=== PATIENT | female | born 1990 | race Caucasian/White ===

== ENCOUNTER 2018-02-17 00:08 | Inpatient (IN) | payer BC ==
[~2018-02-17] VITALS: Ht 160 cm; Wt 66.7 kg
[2018-02-17] MEDS ORDERED: IV NS 1000 ML 1,000 ML IV ONE ×2 (00:45→04:00)
[2018-02-17] MEDS ORDERED: PANTOPRAZOLE SODIUM 40 MG VIAL IV ONE (00:45)
[2018-02-17] MEDS ORDERED: ONDANSETRON IV *ER 4 MG/2 ML VIAL IV ONE (00:45)
[2018-02-17] MEDS ORDERED: ONDANSETRON 4 MG/2 ML VIAL ONE (02:17)
[2018-02-17] MEDS ORDERED: PANTOPRAZOLE SODIUM 40 MG VIAL ONE (02:17)
[2018-02-17 02:35] LABS: *BLOOD, URINE NEGATIVE (NEGATIVE); *CLARITY,URINE CLEAR (CLEAR); *COLOR,URINE YELLOW (YELLOW); *KETONES,URINE 4+ (NEGATIVE); *PROTEIN,URINE 2+ (NEGATIVE); *UROBILINOGEN,URINE 0.2 E.U./dl (NORMAL); LEUKOCYTE ESTERASE ,URINE NEGATIVE (NEGATIVE); NITRITE, URINE NEGATIVE (NEGATIVE); UGLUCOSE NEGATIVE (NEGATIVE)
[2018-02-17 02:37] LABS: *BILIRUBIN,URIN 1+ (NEGATIVE)
[2018-02-17 02:43] LABS: BACTERIA,URINE NONE SEEN /HPF (NONE SEEN); MUCUS,URINE MODERATE /LPF (0-FEW); RBC,URINE 0-3 /HPF (0-3); SQUAMOUS EPITHELIAL CELL,UR FEW /HPF (NONE SEEN); URINE AMORPHOUS PHOSPHATES FEW /HPF; WBC,URINE 0-3 /HPF (0-3)
[2018-02-17 02:48] LABS: *AMPHETAMINE, URINE NEGATIVE (NEGATIVE); *BARBITURATE, URINE POSITIVE (NEGATIVE); *CANNABINOID, URINE NEGATIVE (NEGATIVE); *COCCAINE, URINE NEGATIVE (NEGATIVE); *OPIATE, URINE POSITIVE (NEGATIVE); *PHENCYCLIDINE SCREEN,URINE NEGATIVE (NEGATIVE)
[2018-02-17 03:03] LABS: BASOPHILS # (AUTO) 0.1 K/uL (0.0-8.0); EOSINOPHILS % (AUTO) 0.1 % (0.0-7.0); HEMATOCRIT 33.7 % (31.2-41.9); HEMOGLOBIN 11.8 g/dL (10.9-14.3); LYMPHOCYTES # (AUTO) 1.1 K/uL (20.0-40.0); MEAN CORPUSCULAR HEMOGLOBIN 30.8 uug (24.7-32.8); MEAN CORPUSCULAR HGB CONC 35 g/dL (32.3-35.6); MEAN CORPUSCULAR VOLUME 87.7 fL (75.5-95.3); MONOCYTES # (AUTO) 0.2 K/uL (2.0-10.0); MONOCYTES % (AUTO) 3.2 % (0.0-11.0); NEUTROPHILS # (AUTO) 4.9 K/uL (1.8-8.9); NEUTROPHILS % (AUTO) 78.7 % (38.5-71.5); PLATELET COUNT (AUTO) 381 K/uL (179-408); RED BLOOD CELL COUNT(AUTO) 3.84 MIL/uL (3.63-4.92); WHITE BLOOD COUNT (AUTO) 6.3 K/uL (3.8-11.8)
--- NOTE | 2018-02-17 03:10 | NUR ---
PT BEGAN EXPERIENCING HYPERVENTILATION, DIAPHORESIS AND RESTLESSNESS. PT DENIES CHEST PAIN AND DIFFICULTY BREATHING. MD MADE AWARE.
[2018-02-17] MEDS ORDERED: LORAZEPAM 2 MG/1 ML VIAL IV ONE ×3 (03:15→03:17)
[2018-02-17] MEDS ORDERED: diphenhydrAMINE 50 MG/1 ML VIAL IV ONE (03:17)
[2018-02-17 03:23] LABS: ETHANOL < 3 MG/DL (0-0)
[2018-02-17 03:36] LABS: CARBON DIOXIDE 25 mmol/L (21-32); CHLORIDE 97 mmol/L (98-107); CREATININE 0.7 mg/dL (0.6-1.3); GLUCOSE 216 mg/dL (74-106); POTASSIUM 3.3 mmol/L (3.5-5.1); UREA NITROGEN, BLOOD 26 mg/dL (7-18)
[2018-02-17 03:42] LABS: ALANINE AMINOTRANSFERASE 19 U/L (14-59); ALKALINE PHOSPHATASE 107 U/L (50-136); ASPARTATE AMINOTRANSFERASE 19 U/L (15-37); BILIRUBIN,TOTAL 0.4 mg/dL (0.2-1.0); CREATINE KINASE, TOTAL 321 U/L (26-192); LIPASE 66 U/L (73-393); TOTAL PROTEIN, SERUM 8.2 g/dL (6.4-8.2)
--- NOTE | 2018-02-17 03:56 | NUR ---
Call placed to [facility], Dr. Mcelroy speaking with PUSHPA.
--- NOTE | 2018-02-17 04:20 | NUR ---
REPORT GIVEN TO CCU NURSEAMARA
--- NOTE | 2018-02-17 05:00 | NUR ---
Pt. admitted to CCU, under care of Dr. ADDISON Belongs List completed
[2018-02-17 05:30] VITALS: BP 106/71
--- NOTE | 2018-02-17 05:30 | NUR ---
RECEIVED PT FROM ER VIA BORIS, APHASIC, OPEN HER EYES TO VERBAL, NOT FOLLOWING TO COMMAND. ON O2 @ 2LNC W/ O2 SAT OF 100%. IVF FROM ER OF NS @ 250CC/HR.TILL FINISH. PLACED ON BEDSIDE MONITORING.
--- NOTE | 2018-02-17 05:59 | NUR ---
CALLED DR ADDISON FOR ORDERS.
[2018-02-17] MEDS ORDERED: ONDANSETRON 4 MG/2 ML VIAL IV PRN (07:00)
[2018-02-17] MEDS ORDERED: MAGNESIUM HYDROXIDE 30 ML LIQUID UDC PO PRN (07:00)
[2018-02-17] MEDS ORDERED: LORAZEPAM 2 MG/1 ML VIAL IV PRN (07:00)
[2018-02-17] MEDS ORDERED: DEXTROSE 50% 50 ML DISP.SYRIN IV PRN (07:00)
[2018-02-17] MEDS ORDERED: INSULIN REGULAR, HUMAN 300 UNITS/3 ML VIAL SQ PRN (07:00)
[2018-02-17] MEDS ORDERED: IV NS 1000 ML 1,000 ML IV PRN (07:00)
[2018-02-17] MEDS ORDERED: ACETAMINOPHEN 325 MG TABLET PO PRN (07:00)
[2018-02-17 07:52] LABS: BASOPHILS % (AUTO) 0.6 % (0.0-2.0); EOSINOPHILS % (AUTO) 0.1 % (0.0-7.0); HEMATOCRIT 30.5 % (31.2-41.9); HEMOGLOBIN 10.8 g/dL (10.9-14.3); LYMPHOCYTES # (AUTO) 1.3 K/uL (20.0-40.0); LYMPHOCYTES % (AUTO) 15.3 % (20.5-51.5); MEAN CORPUSCULAR HEMOGLOBIN 30.9 uug (24.7-32.8); MEAN CORPUSCULAR HGB CONC 35 g/dL (32.3-35.6); MEAN CORPUSCULAR VOLUME 87.6 fL (75.5-95.3); MONOCYTES # (AUTO) 0.3 K/uL (2.0-10.0); MONOCYTES % (AUTO) 4.1 % (0.0-11.0); NEUTROPHILS # (AUTO) 6.6 K/uL (1.8-8.9); NEUTROPHILS % (AUTO) 79.9 % (38.5-71.5); PLATELET COUNT (AUTO) 350 K/uL (179-408); RED BLOOD CELL COUNT(AUTO) 3.49 MIL/uL (3.63-4.92); WHITE BLOOD COUNT (AUTO) 8.2 K/uL (3.8-11.8)
[2018-02-17] MEDS: BLOOD SUGAR DIAGNOSTIC 1 EACH STRIP VI SCH ×4 (07:52→20:31)
[2018-02-17] MEDS: PANTOPRAZOLE SODIUM 40 MG TABLET.DR PO SCH (07:53)
[2018-02-17] MEDS: DOCUSATE SODIUM 100 MG CAPSULE PO SCH ×2 (07:55→20:18)
[2018-02-17 08:00] VITALS: BP 117/63
[2018-02-17] MEDS: INSULIN GLARGINE,HUM 300 UNITS/3 ML CARTRIDGE SQ SCH (08:12)
[2018-02-17] MEDS: POTASSIUM CHLORIDE 20 MEQ in IV NS 1000 ML 1,000 ML IV PRN ×2 (08:14→22:31)
[2018-02-17] MEDS: INSULIN REGULAR, HUMAN 300 UNIT/3 ML VIAL SQ PRN ×3 (08:14→16:48)
[2018-02-17 08:19] LABS: BILIRUBIN,TOTAL 0.4 mg/dL (0.2-1.0); CREATININE 0.8 mg/dL (0.6-1.3); MAGNESIUM 1.6 mg/dL (1.8-2.4); PHOSPHOROUS 3.9 mg/dL (2.5-4.9); POTASSIUM 3.5 mmol/L (3.5-5.1); TOTAL PROTEIN, SERUM 7.2 g/dL (6.4-8.2)
--- NOTE | 2018-02-17 10:15 | NUR ---
TRANSFERRED FROM CCU VIA BED A 27 YO FEMALE WITH DEX OF DRUG INTOXICATION AWAKE ALERT BUT VERY ANXIOUS IN ROCKING MOTION WITH 02 3L NC SATURATING 96%. NO SOB WARM AND DRY SKIN ST ON MONITOR
[2018-02-17 11:38] VITALS: BP 117/82
[2018-02-17] MEDS: LORAZEPAM 2 MG/1 ML VIAL IV PRN ×3 (11:54→20:31)
--- NOTE | 2018-02-17 11:59 | NUR ---
SHAKY AND ANXIOUS BP114/59. ATIVAN GIVEN. CONTINUE HATTIE MONITORING ST ON MONITOR
[2018-02-17] MEDS ORDERED: POTASSIUM CHLORIDE 20 MEQ TAB.PRT.SR PO ONE (12:00)
[2018-02-17] MEDS: MAGNESIUM SULFATE/D5W 100 ML IV SCH ×2 (12:14→13:09)
[2018-02-17 15:23] VITALS: BP 117/77
--- NOTE | 2018-02-17 15:24 | NUR ---
PATIENT WITH ON AND OFF RESTLESSNESS HOSPITALIST AWARE CONTINUE WITH CURRENT TX PLAN AND HATTIE MONITORING
[2018-02-17] MEDS ORDERED: GABA800T2 PO (15:48)
[2018-02-17] MEDS ORDERED: ESCI10TA PO (15:48)
[2018-02-17] MEDS ORDERED: METH-406 PO (15:48)
[2018-02-17] MEDS ORDERED: TOPI50TA PO (15:48)
[2018-02-17] MEDS ORDERED: BUPR300T52 PO (15:48)
[2018-02-17] MEDS ORDERED: QUET400T PO (15:48)
--- NOTE | 2018-02-17 18:17 | NUR ---
CONTINUE WITHDRAWAL MONITORING, IV ATIVAN PRN AND IVF FOR HYDRATION
[2018-02-17 20:28] VITALS: BP 112/74
--- NOTE | 2018-02-17 20:30 | NUR ---
PATIENT REMAINS VERY ANXIOUS ,SHAKING,JERKING, PACING ,REQUESTED TO TAKE WARM BATH ALL THE TIMES, ALLOW PATIENT TO TAKE WARM BATH AND ABLE TO REST QUIETLY FOR AWHILE AND RESTARTED OVER AND OVER AGAIN.ATIVAN 2MG IV ADMIN , WAS NOTIFIED.
[2018-02-18 00:32] VITALS: BP 112/85
[2018-02-18] MEDS: LORAZEPAM 2 MG/1 ML VIAL IV PRN ×3 (01:02→13:50)
[2018-02-18] MEDS: diphenhydrAMINE 50 MG/1 ML VIAL IV PRN ×3 (01:02→10:26)
[2018-02-18] MEDS ORDERED: diphenhydrAMINE 50 MG/1 ML VIAL IV ONE (02:00)
[2018-02-18] MEDS ORDERED: LORAZEPAM 2 MG/1 ML VIAL IV ONE (02:00)
[2018-02-18 05:14] VITALS: BP 127/86
[2018-02-18] MEDS: BLOOD SUGAR DIAGNOSTIC 1 EACH STRIP VI SCH ×2 (06:08→11:40)
[2018-02-18] MEDS: PANTOPRAZOLE SODIUM 40 MG TABLET.DR PO SCH (06:10)
--- NOTE | 2018-02-18 06:39 | NUR ---
patient continue restless,agitated most of times,. aware,continue closely monitor, iv Ativan and Benadryl admin prn.patient blood sugar this am 485, was notified.ivf on hold per patient requested,sinus tachy 106 bpm.
[2018-02-18] MEDS: INSULIN REGULAR, HUMAN 300 UNIT/3 ML VIAL SQ PRN (07:16)
--- NOTE | 2018-02-18 07:24 | NUR ---
RESTING COMFORTABLY IN BED NO SIGNS OF DISTRESS. WILL CONTINUE TO MONITOR
[2018-02-18] MEDS: DOCUSATE SODIUM 100 MG CAPSULE PO SCH (08:50)
[2018-02-18 09:38] LABS: CREATININE 1.2 mg/dL (0.6-1.3); MAGNESIUM 1.7 mg/dL (1.8-2.4); POTASSIUM 3.9 mmol/L (3.5-5.1)
[2018-02-18] MEDS: INSULIN GLARGINE,HUM 300 UNITS/3 ML CARTRIDGE SQ SCH (10:28)
[2018-02-18] MEDS ORDERED: TOPIRAMATE 25 MG TABLET PO SCH (11:15)
[2018-02-18] MEDS ORDERED: SULFAMETH/TRIMETH 800/160 MG TABLET PO SCH (11:15)
--- NOTE | 2018-02-18 11:20 | NUR ---
seen by hospitalist with dc order to [facility], case worker aware.
[2018-02-18] MEDS ORDERED: INSULIN LISPRO 1000 UNITS/10 ML VIAL(HUMALOG) SQ SCH (11:30)
[2018-02-18 11:50] VITALS: BP 127/67
[2018-02-18] MEDS ORDERED: QUET200T PO (11:52)
[2018-02-18] MEDS ORDERED: Insulin Glargine,Hum SQ (11:52)
[2018-02-18] MEDS ORDERED: INSU100V SQ (11:52)
[2018-02-18] MEDS ORDERED: DEXT50DI8 IV (11:52)
[2018-02-18] MEDS ORDERED: Blood Sugar Diagnostic VI (11:52)
[2018-02-18] MEDS ORDERED: SULF1TAB3 PO (11:52)
[2018-02-18] MEDS ORDERED: TOPI25TA PO (11:52)
[2018-02-18] MEDS ORDERED: GABA-534 PO (11:52)
[2018-02-18] MEDS ORDERED: MAGNESIUM SULFATE/D5W 100 ML IV SCH (12:45)
[2018-02-18] MEDS ORDERED: GABAPENTIN 300 MG CAPSULE PO SCH (13:00)
[2018-02-18] MEDS ORDERED: MAGNESIUM OXIDE 400 MG TABLET PO ONE (13:00)
[2018-02-18] MEDS ORDERED: GABAPENTIN 400 MG CAPSULE PO SCH (13:00)
--- NOTE | 2018-02-18 13:00 | NUR ---
patient refused both wrist for picture taking.
--- NOTE | 2018-02-18 15:20 | NUR ---
patient transferred to [facility] for further rehabilitation. [facility]
[2018-02-18] MEDS ORDERED: BENZ2AMP IJ (17:16)
[2018-02-18] MEDS ORDERED: OLAN20TA3 PO (17:17)
[2018-02-18] MEDS ORDERED: INSULIN GLARGINE,HUM 300 UNITS/3 ML CARTRIDGE SQ SCH (21:00)
[2018-02-18] MEDS ORDERED: QUETIAPINE FUMARATE 200 MG TABLET PO SCH (21:00)
[2018-02-23] MEDS ORDERED: IBUP-1955 PO (17:31)
[2018-02-23] MEDS ORDERED: TOPI25TA PO (17:31)
[2018-02-23] MEDS ORDERED: INSU100V28 SQ (17:31)
[2018-02-23] MEDS ORDERED: CLON0.1T14 PO (17:31)
[2018-02-23] MEDS ORDERED: GABA-534 PO (17:31)
[2018-02-23] MEDS ORDERED: DIPH50CA37 PO (17:31)
[2018-02-23] MEDS ORDERED: HYDR-3895 PO (17:31)
[2018-02-23] MEDS ORDERED: Insulin Glargine,Hum SQ (17:31)
== END 2018-02-18 15:45 | DRG 897 ==
LOC: ER 00:15 → CCU 04:37 → TELE-TD 10:22 → TELE 02-18 12:50
PROVIDERS: ADMIT Internal Medicine; ATTEND Nurse Practitioner Acute Care
DX: F11.23 Opioid dependence with withdrawal (principal); E10.65 Type 1 diabetes mellitus with hyperglycemia; E44.1 Mild protein-calorie malnutrition; L02.414 Cutaneous abscess of left upper limb; E86.0 Dehydration; Z68.26 Body mass index [BMI] 26.0-26.9, adult; E83.42 Hypomagnesemia; E87.6 Hypokalemia; Z91.89 Other specified personal risk factors, not elsewhere classified; S51.832S Puncture wound without foreign body of left forearm, sequela; X78.8XXS Intentional self-harm by other sharp object, sequela; Z79.4 Long term (current) use of insulin; Z91.14 Patient's other noncompliance with medication regimen; Z87.442 Personal history of urinary calculi; F17.210 Nicotine dependence, cigarettes, uncomplicated
CPT/HCPCS: 36415; 70030-TC; 80307; 83690; 83735; 84100; 84703; 85025; 85610; 93005; A4663; C9113; G0480; J1200; J1815; J2060; J2405; J3475; J3480; J7030

== ENCOUNTER 2018-02-18 15:32 | Inpatient (IN) | payer BC, OTHER ==
[~2018-02-18] VITALS: Ht 160 cm; Wt 61.2 kg
[~2018-02-18 15:32] MED LIST: BUPR300T52 PO; Blood Sugar Diagnostic VI; DEXT50DI8 IV; ESCI10TA PO; GABA-534 PO; GABA800T2 PO; INSU100V SQ; Insulin Glargine,Hum SQ; METH-406 PO; QUET200T PO; QUET400T PO; SULF1TAB3 PO; TOPI25TA PO; TOPI50TA PO
[2018-02-18] MEDS ORDERED: DEXTROSE 50% 50 ML DISP.SYRIN IV PRN (16:45)
[2018-02-18] MEDS ORDERED: MAGNESIUM HYDROXIDE 30 ML LIQUID UDC PO PRN (16:45)
[2018-02-18] MEDS ORDERED: BUPRENORPHINE HCL 2 MG TAB.SUBL SL PRN (16:45)
[2018-02-18] MEDS ORDERED: LORAZEPAM 2 MG/1 ML VIAL IM PRN (16:45)
[2018-02-18] MEDS ORDERED: MIRALAX 17 GM POWD.PACK PO PRN (16:45)
[2018-02-18] MEDS ORDERED: LOPERAMIDE HCL 2 MG CAPSULE PO PRN ×2 (16:45)
[2018-02-18] MEDS ORDERED: MAG HYDROX/AL HYDROX/SIMETH 30 ML LIQUID UDC PO PRN (16:45)
[2018-02-18] MEDS ORDERED: CLONIDINE HCL 0.1 MG TABLET PO PRN (16:45)
[2018-02-18] MEDS ORDERED: LORAZEPAM 1 MG TABLET PO PRN (16:45)
[2018-02-18] MEDS ORDERED: diphenhydrAMINE 50 MG CAPSULE PO PRN (16:45)
[2018-02-18] MEDS ORDERED: ONDANSETRON 4 MG/2 ML VIAL IM PRN (16:45)
[2018-02-18 16:55] LABS: *URINE HCG, QUAL NEGATIVE (NEGATIVE)
[2018-02-18 17:06] LABS: *AMPHETAMINE, URINE NEGATIVE (NEGATIVE); *BARBITURATE, URINE POSITIVE (NEGATIVE); *CANNABINOID, URINE NEGATIVE (NEGATIVE); *COCCAINE, URINE NEGATIVE (NEGATIVE); *OPIATE, URINE POSITIVE (NEGATIVE); *PHENCYCLIDINE SCREEN,URINE NEGATIVE (NEGATIVE)
[2018-02-18] MEDS ORDERED: BENZ2AMP IJ (17:16)
[2018-02-18] MEDS ORDERED: OLAN20TA3 PO (17:17)
[2018-02-18 17:24] LABS: BASOPHILS % (AUTO) 0.4 % (0.0-2.0); EOSINOPHILS % (AUTO) 0.1 % (0.0-7.0); HEMATOCRIT 35.3 % (31.2-41.9); HEMOGLOBIN 12.4 g/dL (10.9-14.3); LYMPHOCYTES % (AUTO) 18.2 % (20.5-51.5); MEAN CORPUSCULAR HEMOGLOBIN 30.5 uug (24.7-32.8); MEAN CORPUSCULAR HGB CONC 35 g/dL (32.3-35.6); MONOCYTES # (AUTO) 0.4 K/uL (2.0-10.0); MONOCYTES % (AUTO) 3.3 % (0.0-11.0); NEUTROPHILS # (AUTO) 8.5 K/uL (1.8-8.9); PLATELET COUNT (AUTO) 430 K/uL (179-408); RED BLOOD CELL COUNT(AUTO) 4.06 MIL/uL (3.63-4.92); WHITE BLOOD COUNT (AUTO) 10.9 K/uL (3.8-11.8)
[2018-02-18] MEDS: BUPRENORPHINE HCL 2 MG TAB.SUBL SL SCH ×2 (17:24→22:20)
[2018-02-18 17:31] LABS: ETHANOL < 3 MG/DL (0-0)
[2018-02-18 17:33] LABS: ALANINE AMINOTRANSFERASE 21 U/L (14-59); ALKALINE PHOSPHATASE 111 U/L (50-136); ASPARTATE AMINOTRANSFERASE 15 U/L (15-37); BILIRUBIN,TOTAL 0.4 mg/dL (0.2-1.0); CARBON DIOXIDE 25 mmol/L (21-32); CHLORIDE 99 mmol/L (98-107); CREATININE 0.8 mg/dL (0.6-1.3); GLUCOSE 158 mg/dL (74-106); MAGNESIUM 1.9 mg/dL (1.8-2.4); POTASSIUM 3.1 mmol/L (3.5-5.1); TOTAL PROTEIN, SERUM 8.7 g/dL (6.4-8.2); UREA NITROGEN, BLOOD 16 mg/dL (7-18)
[2018-02-18] MEDS ORDERED: BLOOD SUGAR DIAGNOSTIC 1 EACH STRIP VI ONE (17:45)
[2018-02-18] MEDS: INSULIN REGULAR, HUMAN 300 UNIT/3 ML VIAL SQ PRN (17:47)
[2018-02-18] MEDS ORDERED: POTASSIUM CHLORIDE 20 MEQ TAB.PRT.SR PO ONE (18:15)
[2018-02-18 20:15] VITALS: BP 113/74
[2018-02-18] MEDS ORDERED: LORAZEPAM 1 MG TABLET PO SCH (21:00)
[2018-02-18] MEDS: BLOOD SUGAR DIAGNOSTIC 1 EACH STRIP VI SCH (21:00)
[2018-02-18] MEDS: TOPIRAMATE 25 MG TABLET PO SCH (22:19)
[2018-02-18] MEDS: LACTOBACILLUS RHAMNOSUS GG 1 EACH CAPSULE PO SCH (22:19)
[2018-02-18] MEDS: SULFAMETH/TRIMETH 800/160 MG TABLET PO SCH (22:19)
[2018-02-18] MEDS: GABAPENTIN 300 MG CAPSULE PO SCH (22:19)
[2018-02-18] MEDS: INSULIN GLARGINE,HUM 300 UNITS/3 ML CARTRIDGE SQ SCH (22:24)
[2018-02-18] MEDS: INSULIN REGULAR, HUMAN 300 UNITS/3 ML VIAL SQ PRN (22:24)
[2018-02-19] VITALS (7 sets, daily range): BP systolic 94–131; BP diastolic 55–85
[2018-02-19] MEDS: BLOOD SUGAR DIAGNOSTIC 1 EACH STRIP VI SCH ×4 (07:39→20:14)
[2018-02-19] MEDS: GABAPENTIN 300 MG CAPSULE PO SCH ×3 (08:00→20:02)
[2018-02-19] MEDS: SULFAMETH/TRIMETH 800/160 MG TABLET PO SCH ×2 (08:01→20:06)
[2018-02-19] MEDS: BUPRENORPHINE HCL 2 MG TAB.SUBL SL SCH ×3 (08:01→20:08)
[2018-02-19] MEDS: LACTOBACILLUS RHAMNOSUS GG 1 EACH CAPSULE PO SCH ×2 (08:01→20:06)
[2018-02-19] MEDS: LORAZEPAM 1 MG TABLET PO PRN ×4 (08:01→20:04)
[2018-02-19] MEDS: TOPIRAMATE 25 MG TABLET PO SCH ×2 (08:01→20:03)
[2018-02-19] MEDS ORDERED: BLOOD SUGAR DIAGNOSTIC 1 EACH STRIP VI ONE (08:15)
[2018-02-19] MEDS ORDERED: TUBERCULIN,PURIF.PROT.DERIV. 5 TU/0.1 ML TEST ID ONE (09:00)
[2018-02-19] MEDS: INSULIN REGULAR, HUMAN 300 UNIT/3 ML VIAL SQ PRN (11:40)
[2018-02-19] MEDS: HYDROXYZINE PAMOATE 25 MG CAPSULE PO PRN (12:47)
[2018-02-19] MEDS: ONDANSETRON ODT 4 MG TAB.RAPDIS SL PRN (12:47)
[2018-02-19] MEDS: METHOCARBAMOL 750 MG TABLET PO PRN (16:35)
[2018-02-19] MEDS: IBUPROFEN 600 MG TABLET PO PRN (16:35)
[2018-02-19] MEDS: BACLOFEN 10 MG TABLET PO SCH (20:04)
[2018-02-19] MEDS: CLONIDINE HCL 0.1 MG TABLET PO SCH (20:05)
[2018-02-19] MEDS: QUETIAPINE FUMARATE 200 MG TABLET PO SCH (20:05)
[2018-02-19] MEDS: INSULIN GLARGINE,HUM 300 UNITS/3 ML CARTRIDGE SQ SCH (20:16)
[2018-02-19] MEDS: INSULIN REGULAR, HUMAN 300 UNITS/3 ML VIAL SQ PRN (20:18)
[2018-02-20] MEDS: BLOOD SUGAR DIAGNOSTIC 1 EACH STRIP VI SCH ×4 (07:36→20:59)
[2018-02-20 08:00] VITALS: BP 104/63
[2018-02-20] MEDS: ACETAMINOPHEN 325 MG TABLET PO PRN (08:24)
[2018-02-20] MEDS: GABAPENTIN 300 MG CAPSULE PO SCH ×3 (08:25→20:43)
[2018-02-20] MEDS: SULFAMETH/TRIMETH 800/160 MG TABLET PO SCH ×2 (08:25→20:45)
[2018-02-20] MEDS: buPROPion XL 150 MG TAB.SR.24H PO SCH (08:25)
[2018-02-20] MEDS: TOPIRAMATE 25 MG TABLET PO SCH ×2 (08:25→20:44)
[2018-02-20] MEDS: LACTOBACILLUS RHAMNOSUS GG 1 EACH CAPSULE PO SCH ×2 (08:25→20:43)
[2018-02-20] MEDS: CLONIDINE HCL 0.1 MG TABLET PO SCH ×3 (08:26→20:45)
[2018-02-20] MEDS: INSULIN REGULAR, HUMAN 300 UNIT/3 ML VIAL SQ PRN ×2 (08:35→18:05)
[2018-02-20] MEDS ORDERED: BUPRENORPHINE HCL 2 MG TAB.SUBL SL SCH (09:00)
[2018-02-20] MEDS: BACLOFEN 10 MG TABLET PO SCH ×3 (09:40→20:44)
[2018-02-20] MEDS: ESCITALOPRAM OXALATE 10 MG TABLET PO SCH (09:40)
[2018-02-20 12:00] VITALS: BP 96/61
[2018-02-20 12:06] LABS: HEPATITIS B SURFACE AG Negative (Negative)
[2018-02-20] MEDS: HYDROXYZINE PAMOATE 25 MG CAPSULE PO PRN (13:35)
[2018-02-20] MEDS ORDERED: KETOROLAC TROMETHAMINE 30 MG INJ IM PRN (14:00)
[2018-02-20] MEDS: BUPRENORPHINE HCL 2 MG TAB.SUBL SL SCH ×2 (15:11→20:43)
[2018-02-20 16:00] VITALS: BP 105/67
[2018-02-20] MEDS: KETOROLAC TROMETHAMINE 30 MG INJ IM PRN (17:19)
[2018-02-20] MEDS ORDERED: LORAZEPAM 1 MG TABLET PO PRN ×2 (18:00)
[2018-02-20] MEDS ORDERED: LORAZEPAM 1 MG TABLET PO ONE (18:30)
[2018-02-20 20:00] VITALS: BP 116/83
[2018-02-20] MEDS: ONDANSETRON ODT 4 MG TAB.RAPDIS SL PRN (20:42)
[2018-02-20] MEDS: QUETIAPINE FUMARATE 200 MG TABLET PO SCH (20:43)
[2018-02-20] MEDS: INSULIN REGULAR, HUMAN 300 UNITS/3 ML VIAL SQ PRN (20:58)
[2018-02-20] MEDS: INSULIN GLARGINE,HUM 300 UNITS/3 ML CARTRIDGE SQ SCH (21:00)
[2018-02-20] MEDS ORDERED: LORAZEPAM 1 MG TABLET PO SCH (21:00)
[2018-02-20] MEDS: IBUPROFEN 600 MG TABLET PO PRN (21:12)
[2018-02-20] MEDS: METHOCARBAMOL 750 MG TABLET PO PRN (21:12)
[2018-02-21] MEDS: BLOOD SUGAR DIAGNOSTIC 1 EACH STRIP VI SCH ×4 (07:34→21:52)
[2018-02-21] MEDS: INSULIN REGULAR, HUMAN 300 UNIT/3 ML VIAL SQ PRN ×3 (07:38→16:35)
[2018-02-21 08:00] VITALS: BP 111/70
[2018-02-21] MEDS: GABAPENTIN 300 MG CAPSULE PO SCH ×3 (08:09→21:45)
[2018-02-21] MEDS: SULFAMETH/TRIMETH 800/160 MG TABLET PO SCH ×2 (08:09→21:45)
[2018-02-21] MEDS: ESCITALOPRAM OXALATE 10 MG TABLET PO SCH (08:10)
[2018-02-21] MEDS: buPROPion XL 150 MG TAB.SR.24H PO SCH (08:10)
[2018-02-21] MEDS: BACLOFEN 10 MG TABLET PO SCH (08:10)
[2018-02-21] MEDS: CLONIDINE HCL 0.1 MG TABLET PO SCH ×2 (08:10→14:04)
[2018-02-21] MEDS: TOPIRAMATE 25 MG TABLET PO SCH ×2 (08:11→21:45)
[2018-02-21] MEDS: LACTOBACILLUS RHAMNOSUS GG 1 EACH CAPSULE PO SCH ×2 (08:11→21:46)
[2018-02-21] MEDS: BUPRENORPHINE HCL 2 MG TAB.SUBL SL SCH ×3 (08:11→21:47)
[2018-02-21] MEDS ORDERED: LORAZEPAM 1 MG TABLET PO SCH ×3 (09:00→21:00)
[2018-02-21] MEDS: HYDROXYZINE PAMOATE 25 MG CAPSULE PO PRN (10:07)
[2018-02-21] MEDS: METHOCARBAMOL 750 MG TABLET PO PRN (10:08)
[2018-02-21] MEDS: KETOROLAC TROMETHAMINE 30 MG INJ IM PRN ×2 (10:09→16:28)
[2018-02-21 14:00] VITALS: BP 92/59
[2018-02-21] MEDS: BACLOFEN 20 MG TABLET PO SCH ×2 (14:03→21:46)
[2018-02-21 16:00] VITALS: BP 97/60
[2018-02-21 20:00] VITALS: BP 93/62
[2018-02-21] MEDS: QUETIAPINE FUMARATE 200 MG TABLET PO SCH (21:46)
[2018-02-21] MEDS: CLONIDINE HCL 0.2 MG TABLET PO SCH (21:47)
[2018-02-21] MEDS: INSULIN REGULAR, HUMAN 300 UNITS/3 ML VIAL SQ PRN (21:54)
[2018-02-21] MEDS: INSULIN GLARGINE,HUM 300 UNITS/3 ML CARTRIDGE SQ SCH (21:55)
[2018-02-22 00:03] VITALS: BP 101/65
[2018-02-22] MEDS: BLOOD SUGAR DIAGNOSTIC 1 EACH STRIP VI SCH ×4 (08:24→21:07)
[2018-02-22 08:30] VITALS: BP 118/85
[2018-02-22] MEDS: LORAZEPAM 1 MG TABLET PO SCH ×3 (08:34→20:58)
[2018-02-22] MEDS: LACTOBACILLUS RHAMNOSUS GG 1 EACH CAPSULE PO SCH ×2 (08:34→20:57)
[2018-02-22] MEDS: TOPIRAMATE 25 MG TABLET PO SCH ×2 (08:34→20:58)
[2018-02-22] MEDS: GABAPENTIN 300 MG CAPSULE PO SCH ×3 (08:34→20:59)
[2018-02-22] MEDS: SULFAMETH/TRIMETH 800/160 MG TABLET PO SCH ×2 (08:34→20:58)
[2018-02-22] MEDS: BACLOFEN 20 MG TABLET PO SCH ×3 (08:35→20:57)
[2018-02-22] MEDS: buPROPion XL 150 MG TAB.SR.24H PO SCH (08:35)
[2018-02-22] MEDS: ESCITALOPRAM OXALATE 10 MG TABLET PO SCH (08:35)
[2018-02-22] MEDS: CLONIDINE HCL 0.1 MG TABLET PO SCH ×2 (08:35→15:35)
[2018-02-22] MEDS: BUPRENORPHINE HCL 2 MG TAB.SUBL SL SCH ×2 (08:35→20:58)
[2018-02-22] MEDS: INSULIN REGULAR, HUMAN 300 UNIT/3 ML VIAL SQ PRN ×2 (08:38→12:31)
[2018-02-22] MEDS ORDERED: LORAZEPAM 1 MG TABLET PO SCH (09:00)
[2018-02-22 12:09] VITALS: BP 98/65
[2018-02-22] MEDS: HYDROXYZINE PAMOATE 25 MG CAPSULE PO PRN ×2 (12:35→21:24)
[2018-02-22 16:00] VITALS: BP 107/68
[2018-02-22] MEDS: IBUPROFEN 600 MG TABLET PO PRN (17:18)
[2018-02-22 20:00] VITALS: BP 98/61
[2018-02-22] MEDS: CLONIDINE HCL 0.2 MG TABLET PO SCH (20:57)
[2018-02-22] MEDS: QUETIAPINE FUMARATE 200 MG TABLET PO SCH (20:58)
[2018-02-22] MEDS: INSULIN GLARGINE,HUM 300 UNITS/3 ML CARTRIDGE SQ SCH (21:11)
[2018-02-22] MEDS: INSULIN REGULAR, HUMAN 300 UNITS/3 ML VIAL SQ PRN (21:12)
[2018-02-22] MEDS: METHOCARBAMOL 750 MG TABLET PO PRN (21:24)
[2018-02-23 08:00] VITALS: BP 95/62
[2018-02-23] MEDS: BLOOD SUGAR DIAGNOSTIC 1 EACH STRIP VI SCH ×4 (08:15→21:21)
[2018-02-23] MEDS: INSULIN REGULAR, HUMAN 300 UNIT/3 ML VIAL SQ PRN ×2 (08:19→18:33)
[2018-02-23] MEDS ORDERED: BUPRENORPHINE HCL 2 MG TAB.SUBL SL SCH (09:00)
[2018-02-23] MEDS ORDERED: LORAZEPAM 1 MG TABLET PO SCH (09:00)
[2018-02-23] MEDS: CLONIDINE HCL 0.1 MG TABLET PO SCH ×2 (09:27→14:20)
[2018-02-23] MEDS: SULFAMETH/TRIMETH 800/160 MG TABLET PO SCH (09:28)
[2018-02-23] MEDS: GABAPENTIN 300 MG CAPSULE PO SCH ×3 (09:28→21:40)
[2018-02-23] MEDS: LACTOBACILLUS RHAMNOSUS GG 1 EACH CAPSULE PO SCH (09:28)
[2018-02-23] MEDS: buPROPion XL 150 MG TAB.SR.24H PO SCH (09:28)
[2018-02-23] MEDS: ESCITALOPRAM OXALATE 10 MG TABLET PO SCH (09:28)
[2018-02-23] MEDS: BACLOFEN 20 MG TABLET PO SCH ×3 (09:28→21:40)
[2018-02-23] MEDS: TOPIRAMATE 25 MG TABLET PO SCH ×2 (09:28→21:40)
[2018-02-23] MEDS: KETOROLAC TROMETHAMINE 30 MG INJ IM PRN (10:03)
[2018-02-23 12:07] VITALS: BP 101/66
[2018-02-23] MEDS: INSULIN REGULAR, HUMAN 300 UNIT/3 ML VIAL SQ SCH ×2 (12:25→17:26)
[2018-02-23] MEDS: ACETAMINOPHEN 325 MG TABLET PO PRN (12:55)
[2018-02-23] MEDS: HYDROXYZINE PAMOATE 25 MG CAPSULE PO PRN (12:55)
[2018-02-23 16:00] VITALS: BP 99/62
[2018-02-23] MEDS ORDERED: HYDR-3895 PO (17:31)
[2018-02-23] MEDS ORDERED: TOPI25TA PO (17:31)
[2018-02-23] MEDS ORDERED: DIPH50CA37 PO (17:31)
[2018-02-23] MEDS ORDERED: Insulin Glargine,Hum SQ (17:31)
[2018-02-23] MEDS ORDERED: GABA-534 PO (17:31)
[2018-02-23] MEDS ORDERED: IBUP-1955 PO (17:31)
[2018-02-23] MEDS ORDERED: CLON0.1T14 PO (17:31)
[2018-02-23] MEDS ORDERED: INSU100V28 SQ (17:31)
[2018-02-23 20:43] VITALS: BP 108/77
[2018-02-23] MEDS: INSULIN GLARGINE,HUM 300 UNITS/3 ML CARTRIDGE SQ SCH (21:00)
[2018-02-23] MEDS: CLONIDINE HCL 0.2 MG TABLET PO SCH (21:39)
[2018-02-23] MEDS: QUETIAPINE FUMARATE 200 MG TABLET PO SCH (21:40)
[2018-02-23] MEDS ORDERED: BLOOD SUGAR DIAGNOSTIC 1 EACH STRIP VI ONE (21:45)
[2018-02-24] MEDS ORDERED: BLOOD SUGAR DIAGNOSTIC 1 EACH STRIP VI ONE (08:15)
[2018-02-24] MEDS: INSULIN REGULAR, HUMAN 300 UNIT/3 ML VIAL SQ SCH (08:18)
[2018-02-24 08:25] VITALS: BP 106/68
[2018-02-24] MEDS: CLONIDINE HCL 0.1 MG TABLET PO SCH ×2 (09:00→09:23)
[2018-02-24] MEDS: BLOOD SUGAR DIAGNOSTIC 1 EACH STRIP VI SCH (09:07)
[2018-02-24] MEDS: BACLOFEN 20 MG TABLET PO SCH (09:10)
[2018-02-24] MEDS: buPROPion XL 150 MG TAB.SR.24H PO SCH (09:10)
[2018-02-24] MEDS: TOPIRAMATE 25 MG TABLET PO SCH (09:10)
[2018-02-24] MEDS: ESCITALOPRAM OXALATE 10 MG TABLET PO SCH (09:10)
[2018-02-24] MEDS: GABAPENTIN 300 MG CAPSULE PO SCH (09:10)
[2018-02-24] MEDS: INSULIN REGULAR, HUMAN 300 UNIT/3 ML VIAL SQ PRN (09:10)
[2018-02-24] MEDS: IBUPROFEN 600 MG TABLET PO PRN (09:18)
[2018-02-24] MEDS: ACETAMINOPHEN 325 MG TABLET PO PRN (09:18)
[2018-02-24 09:23] VITALS: BP 101/72
== END 2018-02-24 09:17 | disposition home or self-care (01) | DRG 895 ==
LOC: SRC 15:32
PROVIDERS: ADMIT Internal Medicine; ATTEND Internal Medicine
PROC: HZ2ZZZZ Detoxification Services for Substance Abuse Treatment (ICD-10-PCS; principal; 2018-02-18)
PROC: HZ31ZZZ Individual Counseling for Substance Abuse Treatment, Behavioral (ICD-10-PCS; 2018-02-21)
DX: F13.232 Sedative, hypnotic or anxiolytic dependence with withdrawal with perceptual disturbance (principal); E10.65 Type 1 diabetes mellitus with hyperglycemia; F15.20 Other stimulant dependence, uncomplicated; L02.414 Cutaneous abscess of left upper limb; F17.210 Nicotine dependence, cigarettes, uncomplicated; F11.23 Opioid dependence with withdrawal; Z59.0 Homelessness; F32.9 Major depressive disorder, single episode, unspecified; F41.9 Anxiety disorder, unspecified; Z59.1 Inadequate housing; Z87.442 Personal history of urinary calculi; S41.132S Puncture wound without foreign body of left upper arm, sequela; X78.8XXS Intentional self-harm by other sharp object, sequela; G47.00 Insomnia, unspecified; Z81.1 Family history of alcohol abuse and dependence; B19.20 Unspecified viral hepatitis C without hepatic coma; Z79.4 Long term (current) use of insulin; E87.6 Hypokalemia; Z91.11 Patient's noncompliance with dietary regimen
CPT/HCPCS: 36415; 80307; 80345; 80346; 80361; 83735; 84703; 85025; 86580; 86592; 86705; 86803; 87340; 87806; A4663; G0480; J1815; J1885; Q0162